=== PATIENT | male | born 1960 | race Caucasian/White ===

== ENCOUNTER → 2017-04-17 | Outpatient (CLI) | payer OTHER ==
[~2017-04-17] MED LIST: OMEP10CA2 PO
--- NOTE | 2017-04-17 13:38 | DIAGNOSTIC IMAGING REPORT ---
CHEST 2 VIEWS ROUTINE HISTORY: 56 years-old Male R05 Cough [id number] COMPARISON: Chest radiographs 09/07/2015 and 08/04/2015 TECHNIQUE: PA and lateral views of the chest FINDINGS: Cardiac silhouette is within normal limits in size. Atherosclerosis of the aorta. Azygos lobe and fissure are noted. No pneumothorax or pleural effusion. Linear subsegmental lingular opacities are compatible with atelectasis or scarring. There are hazy subsegmental right basilar opacities noted which appear to be located within the right lower lobe on the lateral view. Moderate sized hiatal hernia. IMPRESSION: 1. Hazy subsegmental right basilar opacities suggest atelectasis or pneumonia. 2. Moderate sized hiatal hernia. The above report was generated using voice recognition software. It may contain grammatical, syntax or spelling errors. Electronically signed by: Negro Wilson M.D. 04/17/2017 1:36 PM Dictated Date/Time: 04/17/2017 1:25 PM
== END | disposition home or self-care (01) ==
LOC: C.RADBC 13:15
PROVIDERS: ATTEND Physician Assistant Medical
DX: R05 Cough (principal); K44.9 Diaphragmatic hernia without obstruction or gangrene

== ENCOUNTER 2018-12-31 21:47 | Inpatient (IN) ==
[2018-12-31] MEDS ORDERED: ALBUT/IPRATROP 3MG/0.5MG NEB 3 ML VIAL NEB STA (22:19)
[2018-12-31] MEDS ORDERED: SODIUM CHLORIDE 0.9% 1000ML 1,000 ML IV SCH (22:30)
[2018-12-31 22:57] LABS: Basophils # (auto) 0.07 K/uL (0-0.2); Eosinophils # (auto) 1.01 K/uL (0-0.5); Eosinophils % (auto) 14.1 %; Hematocrit (blood only) 44.8 % (42-52); Hemoglobin 15.7 g/dL (14.0-18.0); Immature Granulocytes # (auto) 0.01 K/uL (0.00-0.02); Immature Granulocytes % (auto) 0.1 %; Lymphocytes # (auto) 0.89 K/uL (1.2-3.4); Lymphocytes % (auto) 12.4 %; Mean Corpuscular Hemoglobin 31.2 pg (25-34); Mean Corpuscular Volume 88.9 fL (80-100); Mean Platelet Volume 9.2 fL (7.4-10.4); Monocytes # (auto) 0.91 K/uL (0.11-0.59); Monocytes % (auto) 12.7 %; Neutrophils # (auto) 4.26 K/uL (1.4-6.5); Neutrophils % (auto) 59.7 %; Platelet Count 193 K/uL (130-400); RDW Coefficient of Variation 13.1 % (11.5-14.5); RDW Standard Deviation 42.6 fL (36.4-46.3); Red Blood Count 5.04 M/uL (4.7-6.1); White Blood Count 7.15 K/uL (4.8-10.8)
[2018-12-31 23:25] LABS: Albumin Level 4.1 gm/dl (3.4-5.0); Calcium 9.5 mg/dl (8.5-10.1); Creatinine Clr Calc Pharmacy 56.9 ml/min; Est GFR (African American) 65.4; Est GFR (Non-African American) 56.5; Potassium 3.7 mmol/L (3.5-5.1)
[2018-12-31 23:28] LABS: Albumin Globulin Ratio 0.9 (0.9-2); Bilirubin,Total 0.9 mg/dl (0.2-1); Globulin 4.3 gm/dl (2.5-4.0); Total Protein 8.4 gm/dl (6.4-8.2)
[2019-01-01] MEDS ORDERED: OPTIRAY 320 125ml IV PRN (00:30)
--- NOTE | 2019-01-01 02:32 | History & Physical Report ---
Date of Service January 01, 2019 Assessment & Plan (1) Hypoxia: Patient with URI symptoms, dry cough x2 weeks. Afebrile, hemodynamically stable, hypoxic in the ER to 80% on room air. CT with no pneumonia, pneumothorax, edema. -Admit to medical floor -Continuous pulse ox monitoring -Albuterol neb every 2 hours as needed Present on Admission?: Yes (2) Cough: Patient with cough, URI symptoms, postnasal drip -Symptomatic management with Tessalon 3 times daily, Robitussin with codeine as needed, Flonase twice daily, [place] nasal spray as needed -Albuterol as above -Continue Augmentin 875-125 mg twice daily to complete 10-day course (last day should be 01/05/2019) -Encourage flu shot if patient agreeable Present on Admission?: Yes (3) GERD (gastroesophageal reflux disease): Chronic. Stable. -Continue famotidine 10 mg p.o. daily F/E/N - normal saline at 125 mL/h x 1 L, monitor electrolytes and replete as n eeded, regular diet as tolerated Prophylaxispatient is low risk for DVT. No DVT prophylaxis indicated. Continue home famotidine as above Codefull per discussion with patient Dispositionadmit to medical floor with continuous pulse oximetry Present on Admission?: Yes History of Present Illness Chief Complaint: Cough, shortness of breath Primary Care Provider: Alek Hester MD Mr. Sotelo is a 58-year-old male with history of GERD presenting with shortness of breath and cough. He was seen by his PCP for an acute visit on 12/26 with similar complaintssinus congestion/headache/cough. He was given a prescription for Augmentin as well as Tessalon and cetirizine. He reports taking the Augmentin as prescribed with no relief. Continues to have persistent dry cough, worse at night as well as shortness of breath/dyspnea on exertion, postnasal drip, throat pain, ear congestion and rhinorrhea. Family reports some audible wheezing since yesterday. He denies fevers/chills/weight loss/chest pain/palpitations/abdominal pain/nausea/vomiting/diarrhea/constipation. Denies sneezing/itchy, watery eyes. Denies edema/orthopnea/weight gain. He has had poor appetite and decreased p. o. intake over the last week. No additional complaints at this time. On arrival to the ER he was found to be afebrile, hemodynamically stable, hypoxic at 88% on room air. ER course: Albuterol neb, normal saline Allergies Allergy/AdvReac Type Severity Reaction Status Date / Time oxycodone Allergy Unknown Unknown Verified 12/31/18 23:14 Home Medications Home Medications Medication Instructions Recorded Confirmed Type amoxicillin 875 mg-potassium 1 tab PO BID #20 tab 12/26/18 12/31/18 Rx clavulanate 125 mg tablet cetirizine 10 mg tablet 10 mg PO DAILY #30 tab 12/26/18 12/31/18 Rx famotidine 10 mg tablet 10 mg PO DAILY 12/26/18 12/31/18 History benzonatate 100 mg PO UD PRN 12/31/18 12/31/18 History Past Med/Surg History Medical History (Updated 01/01/19 @ 03:16 by Mabel Alonso DO) GERD (gastroesophageal reflux disease) Surgical History Amputation of forearm H/O inguinal hernia repair Status post repair of nerve Social History Preferred Language: Italian Communication Ability: Effective Visual Impairment: No Limitations Hearing Ability: Normal marital status: Current Living Situation: Spouse current occupational status: employed 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 Feels Safe at Home: Yes Smoking Status: Never smoker Hx Alcohol Use: Yes Alcohol type: beer Alcohol Intake Frequency: Holidays/Special Occasions Hx Substance Use: No Review of Systems Review of Systems: All systems reviewed & are unremarkable except as noted in HPI & below Physical Exam Physical Exam: General: patient resting comfortably, NAD, non-toxic in appear ance, AA&O x 4, + cough Skin: warm, dry, intact, no rashes or lesions HEENT: NC/AT, PERRL, EOMI, anicteric sclera, conjunctiva without injection, external ear normal to inspection and nontender, tympanic membranes pearly with good cone of light, no erythema, TMs retracted,nares patent with boggy mucosa and clear discharge, moist mucus membranes, dentition intact, no oropharyngeal lesions, + postnasal drip, neck supple, trachea midline, no LAD, no thyromegaly, no JVD Heart: +S1/S2, regular, no m/r/g Lungs: equal air entry bilaterally, no rales/rhonchi, faint end expiratory wheezing noted in right mid lung field Abd: +BS, soft, NT/ND, no masses/organomegaly/ascites Ext: warm, 2+ pulses in UE/LE bilaterally, no clubbing/cyanosis or edema, status post amputation left forearm Neuro: nonfocal, patient AA&O x 4, speech intact, no facial droop, moving all extremities on command with equal strength 5/5 Results & Data Vital Signs (Past 12 Hours) Vital Signs Temp Pulse Pulse Resp BP BP Pulse Ox 01/01/19 01:01 95 01/01/19 01:00 129/94 96 01/01/19 00:31 93 01/01/19 00:30 139/82 91 01/01/19 00:00 95 H 18 151/85 H 91 12/31/18 23:52 85 L 12/31/18 23:30 101 H 16 131/85 88 L 12/31/18 22:56 97 H 20 136/88 90 12/31/18 22:54 104 H 20 136/88 12/31/18 22:34 110 H 20 96 12/31/18 21:51 36.7 C 122 H 24 154/86 H 94 Laboratory Results Lab Results 12/31/18 12/31/18 12/31/18 Range/Units 22:37 22:37 22:37 WBC 7.15 (4.8-10.8) K/uL RBC 5.04 (4.7-6.1) M/uL Hgb 15.7 (14.0-18.0) g/dL Hct 44.8 (42-52) % MCV 88.9 (80-100) fL MCH 31.2 (25-34) pg MCHC 35.0 (32-36) g/dL RDW Std Deviation 42.6 (36.4-46.3) fL RDW Coeff of Med 13.1 (11.5-14.5) % Plt Count 193 (130-400) K/uL MPV 9.2 (7.4-10.4) fL Immature Gran % (Auto) 0.1 % Neut % (Auto) 59.7 % Lymph % (Auto) 12.4 % [place] % (Auto) 12.7 % Eos % (Auto) 14.1 % Baso % (Auto) 1.0 % Immature Gran # (Auto) 0.01 (0.00-0.02) K/uL Neut # (Auto) 4.26 (1.4-6.5) K/uL Lymph # (Auto) 0.89 L (1.2-3.4) K/uL [place] # (Auto) 0.91 H (0.11-0.59) K/uL Eos # (Auto) 1.01 H (0-0.5) K/uL Baso # (Auto) 0.07 (0-0.2) K/uL Sodium 141 (136-145) mmol/L Potassium 3.7 (3.5-5.1) mmol/L Chloride 109 H (98-107) mmol/L Carbon Dioxide 24 (21-32) mmol/L Anion Gap 9.0 (3-11) BUN 18 (7-18) mg/dl Creatinine 1.37 (0.6-1.4) mg/dl Est Cr Clr Drug Dosing 56.9 ml/min Est GFR ( Amer) 65.4 Est GFR (Non-Af Amer) 56.5 BUN/Creatinine Ratio 13.0 (10-20) Glucose 113 H (70-99) mg/dl Lactate 2.1 H* (0.4-2.0) mmol/L Calcium 9.5 (8.5-10.1) mg/dl Total Bilirubin 0.9 (0.2-1) mg/dl AST 18 (15-37) U/L ALT 23 (12-78) U/L Alkaline Phosphatase 87 (45-117) U/L Total Protein 8.4 H (6.4-8.2) gm/dl Albumin 4.1 (3.4-5.0) gm/dl Globulin 4.3 H (2.5-4.0) gm/dl Albumin/Globulin Ratio 0.9 (0.9-2) Influenza Type A Ag (Neg) Influenza Type B Ag (Neg) 01/01/19 Range/Units 00:00 WBC (4.8-10.8) K/uL RBC (4.7-6.1) M/uL Hgb (14.0-18.0) g/dL Hct (42-52) % MCV (80-100) fL MCH (25-34) pg MCHC (32-36) g/dL RDW Std Deviation (36.4-46.3) fL RDW Coeff of Med (11.5-14.5) % Plt Count (130-400) K/uL MPV (7.4-10.4) fL Immature Gran % (Auto) % Neut % (Auto) % Lymph % (Auto) % [place] % (Auto) % Eos % (Auto) % Baso % (Auto) % Immature Gran # (Auto) (0.00-0.02) K/uL Neut # (Auto) (1.4-6.5) K/uL Lymph # (Auto) (1.2-3.4) K/uL [place] # (Auto) (0.11-0.59) K/uL Eos # (Auto) (0-0.5) K/uL Baso # (Auto) (0-0.2) K/uL Sodium (136-145) mmol/L Potassium (3.5-5.1) mmol/L Chloride (98-107) mmol/L Carbon Dioxide (21-32) mmol/L Anion Gap (3-11) BUN (7-18) mg/dl Creatinine (0.6-1.4) mg/dl Est Cr Clr Drug Dosing ml/min Est GFR ( Amer) Est GFR (Non-Af Amer) BUN/Creatinine Ratio (10-20) Glucose (70-99) mg/dl Lactate (0.4-2.0) mmol/L Calcium (8.5-10.1) mg/dl Total Bilirubin (0.2-1) mg/dl AST (15-37) U/L ALT (12-78) U/L Alkaline Phosphatase (45-117) U/L Total Protein (6.4-8.2) gm/dl Albumin (3.4-5.0) gm/dl Globulin (2.5-4.0) gm/dl Albumin/Globulin Ratio (0.9-2) Influenza Type A Ag Neg for Influ A (Neg) Influenza Type B Ag Neg for Influ B (Neg) Diagnostic Findings CTA chest: Per stat rad, no acute airspace opacities, pleural effusion or pneumothorax. No aortic dissection or aneurysm. No evidence of pulmonary emboli. Large hiatal hernia ECG Additional Comments: Study reveals sinus tachycardia 102 bpm, normal axis, AK = 180, QRS = 76, QTc = 435, no acute ischemic changes Code Status & VTE Plan Code Status Full code VTE Prophylaxis Plan VTE Prophylaxis will be ordered: No Reason for no VTE drug order: Treatment not indicated Reason for no VTE mechanical prophylaxis: Treatment not indicated PG Care Time/CCT Total # of Minutes Spent Total Time Spent with Patient: Total time spent is greater than 50% in coordination of care (as documented) at patient's floor/unit and/or counseling patient: (1) GERD (gastroesophageal reflux disease) Esophagitis presence: esophagitis presence not specified Qualified Code(s): K21.9 - Gastro-esophageal reflux disease without esophagitis
[2019-01-01] MEDS ORDERED: SODIUM CHLORIDE 0.65% NA SOLN 45 ML (OCEAN) PRN (03:12)
[2019-01-01] MEDS ORDERED: ACETAMINOPHEN 325 MG TAB PO PRN (03:30)
[2019-01-01] MEDS ORDERED: ALBUTEROL 0.5% NEB SOLN 2.5 MG/0.5 ML VIAL NEB PRN (03:30)
[2019-01-01] MEDS ORDERED: BENZONATATE 100 MG CAPSULE PO PRN (03:30)
[2019-01-01 03:55] LABS: Magnesium 2.5 mg/dl (1.8-2.4); Phosphorus 2.5 mg/dl (2.5-4.9)
[2019-01-01] MEDS ORDERED: SODIUM CHLORIDE 0.9% 1000ML 1,000 ML IV SCH (04:30)
[2019-01-01] MEDS: GUAIFENESIN/CODEINE 100MG/10MG 5ML UDC PO PRN ×2 (04:58→11:17)
--- NOTE | 2019-01-01 05:14 | Emergency Department Note ---
History of Present Illness General Chief complaint: Cough Stated complaint: COUGH, SWEATS Time Seen by Provider: 12/31/18 22:16 History of Present Illness Maximum Pain Intensity: 4 This is a 58-year-old male presenting to the emergency department for evaluation of cough and flulike symptoms for the past 1 day. The patient is accompanied by family who assist in the history. The patient began feeling very hot and sweaty tonight. He recently was on Augmentin for a sinus infection last week, and this seems to have improved. He is having difficulty breathing tonight. There is no recent travel history. No significant chest pain is reported. The patient has not taken anything [id number] today for his symptoms. He rates his current discomfort a 4/10. Home Medications Home Medications Medication Instructions Recorded Confirmed Type amoxicillin 875 mg-potassium 1 tab PO BID #20 tab 12/26/18 12/31/18 Rx clavulanate 125 mg tablet cetirizine 10 mg tablet 10 mg PO DAILY #30 tab 12/26/18 12/31/18 Rx famotidine 10 mg tablet 10 mg PO DAILY 12/26/18 12/31/18 History benzonatate 100 mg PO UD PRN 12/31/18 12/31/18 History Allergies Allergy/AdvReac Type Severity Reaction Status Date / Time oxycodone Allergy Unknown Unknown Verified 12/31/18 23:14 Past Med/Surg History Medical History GERD (gastroesophageal reflux disease) Surgical History Amputation of forearm H/O inguinal hernia repair Status post repair of nerve Social History Preferred Language: Albanian Communication Ability: Effective Visual Impairment: No Limitations Hearing Ability: Normal Card Painter Required: No Beliefs That Will Affect Care: None marital status: Current Living Situation: Spouse and Family current occupational status: employed 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 Other Information That Helps Us Care for You: No Feels Safe at Home: Yes Safety Concerns: Feels Safe At This Time Smoking Status: Never smoker Hx Alcohol Use: Yes Alcohol type: beer Alcohol Intake Frequency: Holidays/Special Occasions Hx Substance Use: No Review of Systems A total of 10 systems reviewed and were otherwise negative Physical Exam Vital Signs Vital Signs - 24 hr 12/31/18 21:51 12/31/18 22:29 12/31/18 22:34 Temperature 36.7 C Temperature Source Oral Pulse Rate 122 H Pulse Rate [Apical] 110 H Pulse Rate from SpO2 Sensor Respiratory Rate 24 20 Respiratory Effort / Characteristics Spontaneous Blood Pressure 154/86 H Blood Pressure [Right Arm] Blood Pressure Mean 108 Blood Pressure Mean [Right Arm] Pulse Oximetry 94 96 Oxygen Delivery Method Room Air Room Air Oxygen Flow Rate Sepsis Recent Fever Within 48 Hours No Sepsis New/Unexplained Change in Mental Status No Sepsis Action Taken by Nursing No Action Required Oxygen Flow Rate - Titration Pulse Oximetry Post Tiitration 12/31/18 22:54 12/31/18 22:56 12/31/18 23:30 Temperature Temperature Source Pulse Rate 97 H 101 H Pulse Rate [Apical] 104 H Pulse Rate from SpO2 Sensor 98 H 98 H Respiratory Rate 20 20 16 Respiratory Effort / Characteristics Blood Pressure 136/88 131/85 Blood Pressure [Right Arm] 136/88 Blood Pressure Mean 104 103 Blood Pressure Mean [Right Arm] 104 Pulse Oximetry 90 88 L Oxygen Delivery Method Room Air Oxygen Flow Rate Sepsis Recent Fever Within 48 Hours Sepsis New/Unexplained Change in Mental Status Sepsis Action Taken by Nursing Oxygen Flow Rate - Titration Pulse Oximetry Post Tiitration 12/31/18 23:52 01/01/19 00:00 01/01/19 00:30 Temperature Temperature Source Pulse Rate 95 H Pulse Rate [Apical] Pulse Rate from SpO2 Sensor 94 H 99 H Respiratory Rate 18 Respiratory Effort / Characteristics Blood Pressure 151/85 H 139/82 Blood Pressure [Right Arm] Blood Pressure Mean 96 98 Blood Pressure Mean [Right Arm] Pulse Oximetry 85 L 91 91 Oxygen Delivery Method Room Air Nasal Cannula Oxygen Flow Rate 2 Sepsis Recent Fever Within 48 Hours Sepsis New/Unexplained Change in Mental Status Sepsis Action Taken by Nursing Oxygen Flow Rate - Titration 2 Pulse Oximetry Post Tiitration 96 01/01/19 00:31 01/01/19 01:00 01/01/19 01:01 Temperature Temperature Source Pulse Rate Pulse Rate [Apical] Pulse Rate from SpO2 Sensor 105 H 102 H 105 H Respiratory Rate Respiratory Effort / Characteristics Blood Pressure 129/94 Blood Pressure [Right Arm] Blood Pressure Mean 105 Blood Pressure Mean [Right Arm] Pulse Oximetry 93 96 95 Oxygen Delivery Method Oxygen Flow Rate 2 2 2 Sepsis Recent Fever Within 48 Hours Sepsis New/Unexplained Change in Mental Status Sepsis Action Taken by Nursing Oxygen Flow Rate - Titration Pulse Oximetry Post Tiitration VITALS: Vitals are noted on the nurse's note and reviewed by myself. Vital signs with noted tachycardia and elevated blood pressure GENERAL: Ill-appearing male who is diaphoretic and cooperative with examination. He has a profound dry cough on examination. HEAD: Normocephalic atraumatic. EARS: External ear normal. External auditory canals clear, tympanic membranes pearly [place] without erythema or effusion bilaterally. EYES: Pupils equal round and reactive to light and accommodation. Conjunctivae without injection, sclerae without icterus. Extraocular movements intact. NOSE: Patent, turbinates without inflammation or discharge. MOUTH: Mucous membranes moist. Tonsils are not enlarged. Pharynx without erythema, blood, or exudate. Uvula midline. Airway patent. NECK: Supple without nuchal rigidity. No lymphadenopathy. No thyromegaly. Cervical spine is nontender. HEART: Regular rate and rhythm without murmurs gallops or rubs. LUNGS: Mildly coarse sounds throughout but generally clear ABDOMEN: Positive normal bowel sounds x 4. Soft, nontender, without masses or organomegaly. No guarding or rebound tenderness. MUSCULOSKELETAL: No muscle atrophy, erythema, or edema noted. Left below the elbow amputation identified. No other significant musculoskeletal findings. No calf tenderness. NEURO: Patient was alert and oriented to person place and time. CN II through XII grossly intact. Course Administered Medications Guaifenesin/Codeine Phosphate (Robitussin-Ac Sugar Free) 5 ml PO Q6H PRN PRN Reason: Cough Stop: 01/31/19 03:29 Last Admin: 01/01/19 04:58 Dose: 5 ml Documented by: [id number] Sodium Chloride (Nss 1000ml) 1,000 mls @ 125 mls/hr IV .Q8H RENETTA Stop: 01/01/19 12:29 Last Admin: 01/01/19 04:00 Dose: 125 mls/hr Documented by: [id number] Discontinued Medications Albuterol (Duoneb) 3 ml NEB NOW STA Stop: 12/31/18 22:20 Last Admin: 12/31/18 22:31 Dose: 3 ml Documented by: [id number] Sodium Chloride (Nss 1000ml) 1,000 mls @ 999 mls/hr IV .Q1H1M RENETTA Stop: 12/31/18 23:30 Last Infusion: 01/01/19 00:52 Dose: 0 mls/hr Documented by: [id number] Admin: 12/31/18 23:01 Dose: 999 mls/hr Documented by: [id number] Ioversol (Optiray 320 125ml) 125 ml IV ONCE PRN PRN Reason: Interaction Checking Stop: 01/05/19 00:29 Last Admin: 01/01/19 00:30 Dose: 96 ml Documented by: [id number] Medical Decision Making Differential Diagnosis Differential diagnosis: Etiologies such as infections, reactive airway disease, COPD, pneumonia, pleural effusion, pulmonary edema, ARDS, pneumothorax, CHF, cardiac ischemia, cardiac tamponade, dysrhythmia, anemia, pulmonary embolism, musculoskeletal, gastrointestinal process, as well as others were entertained. Laboratory Data Result diagrams: 12/31/18 22:37 12/31/18 22:37 Lab Results 12/31/18 12/31/18 12/31/18 Range/Units 22:37 22:37 22:37 WBC 7.15 (4.8-10.8) K/uL RBC 5.04 (4.7-6.1) M/uL Hgb 15.7 (14.0-18.0) g/dL Hct 44.8 (42-52) % MCV 88.9 (80-100) fL MCH 31.2 (25-34) pg MCHC 35.0 (32-36) g/dL RDW Std Deviation 42.6 (36.4-46.3) fL RDW Coeff of Med 13.1 (11.5-14.5) % Plt Count 193 (130-400) K/uL MPV 9.2 (7.4-10.4) fL Immature Gran % (Auto) 0.1 % Neut % (Auto) 59.7 % Lymph % (Auto) 12.4 % [place] % (Auto) 12.7 % Eos % (Auto) 14.1 % Baso % (Auto) 1.0 % Immature Gran # (Auto) 0.01 (0.00-0.02) K/uL Neut # (Auto) 4.26 (1.4-6.5) K/uL Lymph # (Auto) 0.89 L (1.2-3.4) K/uL [place] # (Auto) 0.91 H (0.11-0.59) K/uL Eos # (Auto) 1.01 H (0-0.5) K/uL Baso # (Auto) 0.07 (0-0.2) K/uL Sodium 141 (136-145) mmol/L Potassium 3.7 (3.5-5.1) mmol/L Chloride 109 H (98-107) mmol/L Carbon Dioxide 24 (21-32) mmol/L Anion Gap 9.0 (3-11) BUN 18 (7-18) mg/dl Creatinine 1.37 (0.6-1.4) mg/dl Est Cr Clr Drug Dosing 56.9 ml/min Est GFR ( Amer) 65.4 Est GFR (Non-Af Amer) 56.5 BUN/Creatinine Ratio 13.0 (10-20) Glucose 113 H (70-99) mg/dl Lactate 2.1 H* (0.4-2.0) mmol/L Calcium 9.5 (8.5-10.1) mg/dl Phosphorus 2.5 (2.5-4.9) mg/dl Magnesium 2.5 H (1.8-2.4) mg/dl Total Bilirubin 0.9 (0.2-1) mg/dl AST 18 (15-37) U/L ALT 23 (12-78) U/L Alkaline Phosphatase 87 (45-117) U/L Total Protein 8.4 H (6.4-8.2) gm/dl Albumin 4.1 (3.4-5.0) gm/dl Globulin 4.3 H (2.5-4.0) gm/dl Albumin/Globulin Ratio 0.9 (0.9-2) Influenza Type A Ag (Neg) Influenza Type B Ag (Neg) 01/01/19 Range/Units 00:00 WBC (4.8-10.8) K/uL RBC (4.7-6.1) M/uL Hgb (14.0-18.0) g/dL Hct (42-52) % MCV (80-100) fL MCH (25-34) pg MCHC (32-36) g/dL RDW Std Deviation (36.4-46.3) fL RDW Coeff of Med (11.5-14.5) % Plt Count (130-400) K/uL MPV (7.4-10.4) fL Immature Gran % (Auto) % Neut % (Auto) % Lymph % (Auto) % [place] % (Auto) % Eos % (Auto) % Baso % (Auto) % Immature Gran # (Auto) (0.00-0.02) K/uL Neut # (Auto) (1.4-6.5) K/uL Lymph # (Auto) (1.2-3.4) K/uL [place] # (Auto) (0.11-0.59) K/uL Eos # (Auto) (0-0.5) K/uL Baso # (Auto) (0-0.2) K/uL Sodium (136-145) mmol/L Potassium (3.5-5.1) mmol/L Chloride (98-107) mmol/L Carbon Dioxide (21-32) mmol/L Anion Gap (3-11) BUN (7-18) mg/dl Creatinine (0.6-1.4) mg/dl Est Cr Clr Drug Dosing ml/min Est GFR ( Amer) Est GFR (Non-Af Amer) BUN/Creatinine Ratio (10-20) Glucose (70-99) mg/dl Lactate (0.4-2.0) mmol/L Calcium (8.5-10.1) mg/dl Phosphorus (2.5-4.9) mg/dl Magnesium (1.8-2.4) mg/dl Total Bilirubin (0.2-1) mg/dl AST (15-37) U/L ALT (12-78) U/L Alkaline Phosphatase (45-117) U/L Total Protein (6.4-8.2) gm/dl Albumin (3.4-5.0) gm/dl Globulin (2.5-4.0) gm/dl Albumin/Globulin Ratio (0.9-2) Influenza Type A Ag Neg for Influ A (Neg) Influenza Type B Ag Neg for Influ B (Neg) Imaging Data Radiologist's Impression: Preliminary Findings Only See Final Report For Complete Findings CTA CHEST: No acute airspace opacities, pleural effusion or pneumothorax. No aortic dissection or aneurysm. No evidence of pulmonary emboli. Large hiatal hernia. ECG Data Additional Comments: Sinus tachycardia @[address] elevation Otherwise normal ECG When compared with ECG of 08-APR-2015 14:20, Premature ventricular complexes are no longer Present QT has lengthened MDM Narrative Physical exam and history were performed. Nursing notes, EMR, and Medication List were personally reviewed. Patient appears to have significant cough and difficulty breathing. On exam the patient does have tachycardia and elevated blood pressure. EKG was performed as above without acute ST elevation. IV access was established and labs were obtained. Blood cultures were gathered. Patient was placed on the bus monitor. He was given a DuoNeb for comfort. Influenza swab was gathered. The patient's blood work is as above and was reviewed. He does not have a significantly elevated white blood cell count, gross anemia, bandemia, or significant electrolyte imbalance. Influenza swab is negative. Chest x-ray was reviewed and does not show obvious acute findings. The patient's lactic is slightly elevated at 2.1 and blood cultures are pending. Troponin x1 is negative. The patient continues without fever here in the department. The patient was reevaluated multiple times about the course of his stay. The patient continues to feel unwell and had an episode of hypoxia, with O2 saturation of 85% on room air. He was placed on oxygen via nasal cannula. The patient continues to appear ill, and because of this I did elect to perform CT scan of the chest. CT scan was reviewed by myself and radiology, and continues without significant acute findings. Overall the patient does not appear well for discharge home. I suspect he is having respiratory distress and hypoxia secondary to a viral infection. He did report some improvement after breathing treatment. The case was discussed with the on-call hospitalist who agreed to evaluate the patient here in the department. Please see their dictation for further patient course, plan, and disposition. The chart was completed utilizing [employer] Voice Recognition Software. Grammatical errors, random word insertions, pronoun errors, and incomplete sentences are an occasional consequence of this system due to software limitations, ambient noise, and hardware issues. Any formal questions or concerns about the content, text, or information contained within the body of this dictation should be directly addressed to the provider for clarification. . Impression & Plan Hypoxia, Cough, URI (upper respiratory infection) Discharge Plan Visit Data *Final* Discharge Date/Time: 01/01/19 03:07 Chief Complaint: Cough Stated Complaint: COUGH, SWEATS ED Provider: Stephanie Lopez ED Midlevel Provider: Jonathan Machado Discharge Problem: Hypoxia, Cough, URI (upper respiratory infection) Patient Disposition: Admitted As Inpatient Discharge Instructions Interventions: ED Discharge Assessment Last Done: 01/01/19 03:07 Discharge Problem: URI (upper respiratory infection) Qualifiers: URI type: unspecified URI Qualified Code(s): J06.9 - Acute upper respiratory infection, unspecified
[2019-01-01] MEDS ORDERED: INFLUENZA VACCINE HIGH DOSE 65+ 0.5 ML SYR IM ONE (05:57)
--- NOTE | 2019-01-01 07:04 | XRay Report ---
TWO VIEW CHEST CLINICAL HISTORY: Cough and fever. FINDINGS: PA and lateral chest radiographs are compared to study dated 01/27/2018. The cardiomediasti nal silhouette is unremarkable noting atherosclerotic calcification of the thoracic aorta. A hiatal h ernia is noted. There is bibasilar atelectasis. The lungs and pleural spaces are otherwise clear. An accessory azygous fissure is incidentally noted. There is no pneumothorax. The bony thorax appears in tact. IMPRESSION: 1. No active disease in the chest. 2. Hiatal hernia. Electronically signed by: Paul Singh M.D. 01/01/2019 7:03 AM
--- NOTE | 2019-01-01 07:25 | CT Scan Report ---
CT ANGIOGRAM OF THE CHEST CLINICAL HISTORY: Cough and dyspnea. Hypoxia. COMPARISON STUDY: Chest x-ray dated 12/31/2018. TECHNIQUE: Following the IV administration of 96 cc of Optiray 320, CT angiogram of the chest was per formed from the upper abdomen to the thoracic inlet utilizing the pulmonary embolus protocol. Images are reviewed in the axial, sagittal, and coronal planes. 3-D MIPS images are created and assessed. IV contrast was administered without complication. A dose lowering technique was utilized adhering to the principles of ALARA. The examination is degraded by motion artifact. CT DOSE: 363.00 mGy.cm FINDINGS: Thyroid: Imaged portions of the thyroid gland are normal in size and attenuation. Thoracic aorta: There is mild atherosclerotic calcification of the thoracic aorta, which is normal in caliber and demonstrates bovine variant arch anatomy. No dissection is seen. Pulmonary vasculature: The pulmonary trunk is normal in caliber. There are no filling defects identif ied in main, lobar, or segmental pulmonary branches to suggest pulmonary embolus. Evaluation of the p eripheral branches is degraded by motion artifact. Heart: The heart is mildly enlarged and without pericardial effusion. Lungs and pleural spaces: Evaluation of the lung parenchyma is degraded by motion artifact. There is no airspace consolidation typical for pneumonia or pleural effusion. Minimal atelectasis is seen at t he lung bases. An accessory azygous fissure is incidentally noted. The trachea and central airways ar e clear. There is a 5 mm pulmonary nodule at the right lung base seen on image #85. Mediastinum: There are mildly enlarged mediastinal lymph nodes. Prevascular nodes measure up to 10 mm in short axis. A right paratracheal node measures 9 mm in short axis. Valentine: There are mildly enlarged hilar lymph nodes which measure up to 13 mm in short axis. Axillae: There are shotty axillary lymph nodes. The largest is on the right and measures up to 1.8 cm in length. Upper abdomen: There is a large hiatal hernia. Partially visualized upper abdominal viscera is within normal limits. Skeletal structures: The skeletal structures appear osteopenic. Degenerative changes noted in the mason ulders. Postoperative change is noted in the left humerus on the corporate trainer tomogram. No lytic or blastic bony lesions are seen. IMPRESSION: 1. Motion degraded examination. 2. There is no evidence of pulmonary embolus in the main, lobar, or segmental pulmonary arteries. 3. There is no airspace consolidation or pleural effusion. 4. Mild cardiac enlargement. 5. Large hiatal hernia. 6. Mildly enlarged mediastinal and hilar lymph nodes are nonspecific. Clinical correlation will be re quired. 7. There is a 5 mm pulmonary nodule at the right lung base. This can be followed as per the Fleischne r criteria. See below. Please refer to below summary of Fleischner criteria recommendations for follow-up of incidental CT n odules (Avery Hung, Guidelines for management of small pulmonary nodules detected on CT scans: A sta tement from the Fleischner Society, Radiology 237: [phone].) SOLID NODULES Solitary nodule size: <6 mm * low risk patients: no follow-up needed * high risk patients: optional CT at 12 months Solitary nodule size: 6-8 mm * low risk patients: follow-up at 6-12 months, then consider further follow-up at 18-24 months * high risk patients: initial follow-up CT at 6-12 months and then at 18-24 months if no change Solitary nodule size: >8 mm * either low or high risk patients - consider follow-up CT at 3 months, and/or CT-PET, and/or biopsy Multiple nodules size: <6 mm * low risk patients: no routine follow-up * high risk patients: optional CT at 12 months Multiple nodules size: 6-8 mm * low risk patients: follow-up at 3-6 months, then consider further follow-up at 18-24 months * high risk patients: follow-up at 3-6 months, then at 18-24 months if no change Multiple nodules size: >8 mm * low risk patients: follow-up at 3-6 months, then consider further follow-up at 18-24 months * high risk patients: follow-up at 3-6 months, then at 18-24 months if no change Note: newly detected indeterminate nodule in persons 35 years of age or older. * low risk patients: minimal or absent history of smoking and/or other known risk factors * high risk patients: history of smoking or of other known risk factors (e.g. first degree relative with lung cancer, or exposure to asbestos, radon, uranium) * if a nodule up to 8 mm is partly solid or is ground glass further follow-up is required after 24 m onths to exclude possible slow growing adenocarcinoma (CHAPARRITA) SUBSOLID NODULES Solitary pure ground-glass nodule * nodule size <6 mm - no CT follow-up required * nodule size >=6 mm - follow-up CT at 6-12 months, then every 2 years until 5 years Solitary part-solid nodule * nodule size <6 mm - no CT follow-up required * nodule size >=6 mm - follow-up CT at 3-6 months. If unchanged, and solid component remains <6 mm, then annual follow-up for 5 years Multiple subsolid nodules * nodule size <6 mm - follow-up CT at 3-6 months, consider further follow-up at 2 and 4 years if sta ble * nodule size >=6 mm - follow-up CT at 3-6 months, subsequent management based on the most suspiciou s nodule(s) Electronically signed by: Paul Singh M.D. 01/01/2019 7:24 AM
[2019-01-01] MEDS: FAMOTIDINE 20 MG TAB PO SCH (07:42)
[2019-01-01] MEDS: FLUTICASONE PROPIONATE NA SPR 16 GM BTL SCH ×2 (07:42→20:32)
[2019-01-01] MEDS: CETIRIZINE HCL 10 MG TABLET PO SCH (07:42)
[2019-01-01] MEDS ORDERED: INFLUENZA VIRUS QUAD VACCINE 0.5 ML SYR IM ONE ×2 (07:45→08:00)
[2019-01-01] MEDS ORDERED: INFLUENZA ADMINISTRATION CHARGE ONE ×2 (07:45→08:00)
[2019-01-01] MEDS ORDERED: AMOXICILLIN/CLAVULANATE 875 MG TAB PO SCH (08:00)
[2019-01-01 09:14] LABS: BUN Creatinine Ratio 11.5 (10-20); Calcium 8.8 mg/dl (8.5-10.1); Creatinine Clr Calc Pharmacy 67.7 ml/min; Est GFR (African American) 80.9; Est GFR (Non-African American) 69.8; Potassium 3.8 mmol/L (3.5-5.1)
[2019-01-01 09:16] LABS: Hematocrit (blood only) 39.9 % (42-52); Hemoglobin 13.8 g/dL (14.0-18.0); Mean Corpuscular Hemoglobin 30.8 pg (25-34); Mean Corpuscular Hgb Conc 34.6 g/dL (32-36); Mean Corpuscular Volume 89.1 fL (80-100); Mean Platelet Volume 9.5 fL (7.4-10.4); Platelet Count 160 K/uL (130-400); RDW Coefficient of Variation 13.1 % (11.5-14.5); RDW Standard Deviation 42.8 fL (36.4-46.3); Red Blood Count 4.48 M/uL (4.7-6.1); White Blood Count 5.63 K/uL (4.8-10.8)
--- NOTE | 2019-01-01 10:37 | History & Physical Bridge Note ---
Date of Service January 01, 2019 History & Physical Bridge Note I have examined the patient, reviewed the History & Physical and in the interval since the performance of the History & Physical I have noted the following changes of clinical significance: A/P -Hypoxia/URI Patient with continued end expiratory wheezing, denies improvement of symptoms since being on Augmentin, initiated as outpatient on 12/26. Patient 96% currently on 2L (80% in ER on RA)- O2 to maintain sat >92% Prednisone 40mg - will taper D/C Augmentin Initiated Azithromycin for atypical coverage Transitioned from Albuterol neb to Levalbuterol/Atrovent Q2H WA given elevated HR. Supervising Physician Co-Signing Physician Notes PA Supervision Note: I did not personally see or examine the patient today, but I verified all antonio points of LARRY Avelar's assessment and plan with the following exceptions/additions: CHange levalbuterol/atrovent nebs to qid instead fo q2h while awake Continue to follow Note made of eosinophilia despite being on Zyrtec which is interesting--> may need a referral to Manager Utilization Review if persists
[2019-01-01] MEDS ORDERED: AZITHROMYCIN 250 MG TAB PO ONE (11:00)
[2019-01-01] MEDS: predniSONE 20 MG TAB PO SCH (11:17)
[2019-01-01] MEDS ORDERED: XOPENEX/ATROVENT 0.63mg/0.5MG NEB COMBO NEB SCH (16:00)
[2019-01-01] MEDS: LEVALBUTEROL HCL 0.63 MG/3 ML NEB NEB SCH ×4 (18:00→22:11)
[2019-01-01] MEDS: IPRATROPIUM BROMIDE NEB SOLN 0.02% 2.5 ML VIAL INH SCH ×4 (18:00→22:11)
[2019-01-02] MEDS: IPRATROPIUM BROMIDE NEB SOLN 0.02% 2.5 ML VIAL INH SCH ×3 (07:09→14:57)
[2019-01-02] MEDS: LEVALBUTEROL HCL 0.63 MG/3 ML NEB NEB SCH ×3 (07:09→14:57)
[2019-01-02] MEDS: GUAIFENESIN/CODEINE 100MG/10MG 5ML UDC PO PRN (07:45)
[2019-01-02] MEDS: CETIRIZINE HCL 10 MG TABLET PO SCH (07:45)
[2019-01-02] MEDS: FLUTICASONE PROPIONATE NA SPR 16 GM BTL SCH (07:45)
[2019-01-02] MEDS: FAMOTIDINE 20 MG TAB PO SCH (07:46)
[2019-01-02] MEDS: predniSONE 20 MG TAB PO SCH (07:46)
[2019-01-02 08:29] LABS: Basophils # (auto) 0.05 K/uL (0-0.2); Basophils % (auto) 0.7 %; Eosinophils # (auto) 0.38 K/uL (0-0.5); Eosinophils % (auto) 5.2 %; Immature Granulocytes # (auto) 0.01 K/uL (0.00-0.02); Immature Granulocytes % (auto) 0.1 %; Lymphocytes # (auto) 2.49 K/uL (1.2-3.4); Lymphocytes % (auto) 34.1 %; Mean Corpuscular Hemoglobin 31.5 pg (25-34); Mean Corpuscular Volume 90.1 fL (80-100); Mean Platelet Volume 9.1 fL (7.4-10.4); Monocytes # (auto) 0.77 K/uL (0.11-0.59); Monocytes % (auto) 10.5 %; Neutrophils # (auto) 3.61 K/uL (1.4-6.5); Neutrophils % (auto) 49.4 %; Platelet Count 170 K/uL (130-400); RDW Coefficient of Variation 13.4 % (11.5-14.5); Red Blood Count 4.44 M/uL (4.7-6.1); White Blood Count 7.31 K/uL (4.8-10.8)
[2019-01-02 08:55] LABS: BUN Creatinine Ratio 9.5 (10-20); Calcium 9.2 mg/dl (8.5-10.1); Creatinine Clr Calc Pharmacy 65.5 ml/min; Est GFR (African American) 77.6; Est GFR (Non-African American) 66.9; Magnesium 2.2 mg/dl (1.8-2.4); Potassium 3.4 mmol/L (3.5-5.1)
[2019-01-02] MEDS ORDERED: AZITHROMYCIN 250 MG TAB PO SCH (09:00)
--- NOTE | 2019-01-02 09:37 | Discharge Summary ---
Date of Service January 02, 2019 Admission HPI Per Admitting Provider Mr. Sotelo is a 58-year-old male with history of GERD presenting with shortness of breath and cough. He was seen by his PCP for an acute visit on 12/26 with similar complaintssinus congestion/headache/cough. He was given a prescription for Augmentin as well as Tessalon and cetirizine. He reports taking the Augmentin as prescribed with no relief. Continues to have persistent dry cough, worse at night as well as shortness of breath/dyspnea on exertion, postnasal drip, throat pain, ear congestion and rhinorrhea. Family reports some audible wheezing since yesterday. He denies fevers/chills/weight loss/chest pain/palpitations/abdominal pain/nausea/vomiting/diarrhea/constipation. Denies sneezing/itchy, watery eyes. Denies edema/orthopnea/weight gain. He has had poor appetite and decreased p.o. intake over the last week. No additional complaints at this time. On arrival to the ER he was found to be afebrile, hemodynamically stable, hypoxic at 88% on room air. ER course: Albuterol neb, normal saline Admission Exam Per Admitting Provider General: patient resting comfortably, NAD, non-toxic in appearance, AA&O x 4, + cough Skin: warm, dry, intact, no rashes or lesions HEENT: NC/AT, PERRL, EOMI, anicteric sclera, conjunctiva without injection, external ear normal to inspection and nontender, tympanic membranes pearly with good cone of light, no erythema, TMs retracted,nares patent with boggy mucosa and clear discharge, moist mucus membranes, dentition intact, no oropharyngeal lesions, + postnasal drip, neck supple, trachea midline, no LAD, no thyromegaly, no JVD Heart: +S1/S2, regular, no m/r/g Lungs: equal air entry bilaterally, no rales/rhonchi, faint end expiratory wheezing noted in right mid lung field Abd: +BS, soft, NT/ND, no masses/organomegaly/ascites Ext: warm, 2+ pulses in UE/LE bilaterally, no clubbing/cyanosis or edema, status post amputation left forearm Neuro: nonfocal, patient AA&O x 4, speech intact, no facial droop, moving all extremities on command with equal strength 5/5 Principal Diagnosis Hypoxia Atypical Pneumonia Discharge Exam Constitutional WD/WN, vitals as above no acute distress ENMT external ear and nose normal, oropharynx normal Neck trachea midline, no thyromegaly Respiratory normal respiratory effort and + cough; no respiratory distress and no labored breathing Auscultation: + crackles (fine bilateral crackles); no wheezes Cardiovascular RRR, no murmur, no edema Gastrointestinal (Abdomen) normal bowel sounds, soft, nontender, no hepatosplenomegaly Skin no rashes, warm and dry Psychiatric A+Ox3, euthymic affect Lymphatic no cervical or axillary lymphadenopathy Discharge Data Allergies Allergy/AdvReac Type Severity Reaction Status Date / Time oxycodone Allergy Unknown Unknown Verified 12/31/18 23:14 Consultations 01/01/19 01:57 ED Decision to Admit Stat Ordered Studies 12/31/18 23:52 CT angio chest PE protocol Urgent 12/31/18 CXR Hospital Course (1) Hypoxia: * Patient with URI symptoms, dry cough x2 weeks. Afebrile, hemodynamically stable, hypoxic in the ER to 80% on room air. CT with no pneumonia, pneumothorax, edema. Wheezing on auscultation upon arrival to medical floor. * Patient transitioned from Augmentin to Azithromycin for atypical coverage given lack of improvement with Augmentin and nature of dry non-productive cough. * Albuterol nebs initially with some tachycardia--> was switched to levalbuterol/atrovent. * started on prednisone 40mg po daily * Hypoxia resolved. 93% on RA with ambulation. * Of note, patient to have high eosinophils on admission despite being on zyrtec as outpatient. Resolved prior to discharge, however would recommend patient follow up with allergy/sheetrock applicator as outpatient for further evaluation. * Patient also found to have incidental pulmonary nodule RLL - 5mm. Contacted lung nodule clinic and they do not feel it is necessary to follow-up given size and [lack of] risk factors. (2) Cough: * Patient with cough, URI symptoms, postnasal drip * Symptomatic management with Tessalon 3 times daily, Robitussin with codeine as needed, Flonase twice daily, [place] nasal spray as needed. * Nebs as above. * Augmentin --> Azithromycin as above (3) GERD (gastroesophageal reflux disease): * Continued famotidine 10 mg p.o. daily Total Time Total Time Spent Total Time Spent (In Minutes): 40 Discharge Plan Discharge Items Patient Disposition: Home - Self-Care Reason For Visit: COUGH, HYPOXIA Discharge Diagnosis: Atypical Pneumonia, Cough Condition on Discharge: Good Goals: You have been hospitalized for an acute medical problem. During your stay at [facility], we have made an effort to correct the problem that brought you to the hospital while keeping you as comfortable as possible. Medications were used to bring your condition under control and your discharge instructions will include directions for any medications you should take after leaving the hospital. Please make sure you see your Primary Care Provider as part of your follow up plan. Activity: Resume your previous activity Non-emergency contact: Primary Care Provider Call non-emergency contact if: you have any medication questions, your symptoms worsen and you have a fever Follow-up/Referrals: Alek Hester III, MD [Primary Care Provider] - 01/14/19 1:50 pm (A follow up appt. has been made for you with Dr. Hester on Jan.14 at 1:50pm.) Diet: Regular Addtl Attending Provider Instructions: You have been sent a prescription for azithromycin, the antibiotic you were switched to while here in the hospital. You have already received two doses, and have an additional three days of treatment to complete the full course. Keep in mind, it may take a couple days to fully recover. You have also been sent a prescription for steroids, prednisone, 20mg tablets. Please take 40mg (2 tablets) for the next 5 days. For your cough, you may continue your tessalon perles (benzonatate) as prescribed by your primary care provider. You have also been sent an albuterol inhaler. You have previously been on this per our discussion following an episode of pneumonia two years ago. You may take 2 puffs every four hours as needed for chest tightness/shortness of breath. Please report to the emergency room if you develop shortness of breath, worsening cough or fever, or for any other symptoms that are concerning for you. Pending Studies at Discharge: No Stand-Alone Forms: My [facility] Medications and DC Order Prescriptions: New azithromycin [Zithromax] 250 mg Tablet 250 mg PO QAM 3 Days Qty: 3 RF: 0 albuterol sulfate 90 mcg/actuation HFA aerosol inhaler 2 puffs INH Q4H PRN (Reason: shortness of breath or wheezing) Qty: 6.7 RF: 0 prednisone 20 mg tablet 40 mg PO DAILY 5 Days Qty: 10 RF: 0 (DME) Spacer for Inhaler Misc See Rx Instructions .ROUTE .MEDSUPPLY Qty: 1 RF: 0 Continued famotidine [Pepcid AC] 10 mg tablet 10 mg PO DAILY RF: 0 cetirizine [Zyrtec] 10 mg tablet 10 mg PO DAILY Qty: 30 RF: 0 benzonatate 100 mg capsule 100 mg PO UD PRN (Reason: Cough) RF: 0 Discontinued amoxicillin-pot clavulanate [Augmentin] 875-125 mg tablet 1 tab PO BID Qty: 20 RF: 0 Discharge Orders: Discharge Order (Routine); Ordered 01/02/19 Ordered By: Denise Baird Admission Data Admit Date/Time: 01/01/19 02:50 Attending Provider: Denise Baird Admit Provider: Mabel Alonso Primary Care Provider: Alek Hester III Other Providers: Mabel Alonso Other Interventions: Discharge Summary Assessment (RN) Last Done: 01/02/19 15:47 DC Date/Time DO NOT enter until pt leaves facility: 01/02/19 16:39 Supervising Physician Co-Signing Physician Notes PA Supervision Note: I personally saw and examined the patient. I verified all antonio points and agree with LARRY Avelar with the following exceptions and/or additions: Doing much better, cough is significanlty improved, still some yellow sputum, weaned off O2. Feels he is doing well and can go home VSS RRR no mgr lungs +fine crackles bibasilr and middle lung cannon bilat ABd soft NT ND +BS Ext no edema or calf tenderness Stable for dc to home on prednisone burst, finish Azithro, and close follow up with PCP -recommend f/u with [facility]/ Asthma/Pulmonology for testing for asthma allergies as gets wheezing and bronchitis every Fall
[2019-01-02] MEDS ORDERED: POTASSIUM CHLORIDE 20 MEQ TABCR PO ONE (09:45)
== END 2019-01-02 16:39 | disposition home or self-care (01) | DRG 195 ==
LOC: ED 21:47 → SUATTDRO 01-01 02:50 → 4W 01-01 02:50